=== PATIENT | female | born 1960 ===

== ENCOUNTER 2017-12-06 06:52 | Emergency (ER) | payer SELFPAY ==
[2017-12-06 07:31] VITALS: RESP 18; O2SAT 100
--- NOTE | 2017-12-06 08:02 | C.PDOC ---
History Of Present Illness 57 y/o female presents to the ER complaining of pain to the right hip. 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 Patient reports that the pain is worse with movement. Patient denies having headache, fever, chills, nausea, and vomiting. Time Seen by Provider: 12/06/17 07:46 Chief Complaint (Nursing): Lower Extremity Problem/Injury History Per: Patient History/Exam Limitations: no limitations Onset/Duration Of Symptoms: Days Current Symptoms Are (Timing): Still Present Severity: Moderate Past Medical History Reviewed: Historical Data, Nursing Documentation, Vital Signs Vital Signs: Last Vital Signs Temp 98.7 F 12/06/17 09:03 Pulse 68 12/06/17 09:03 Resp 18 12/06/17 09:03 BP 129/84 12/06/17 09:03 Pulse Ox 100 12/06/17 09:03 - Medical History PMH: No Chronic Diseases Other Surgeries: Hx of surgeries Family History: States: No Known Family Hx - Social History Hx Alcohol Use: Yes Hx Substance Use: No - Immunization History Hx Tetanus Toxoid Vaccination: No Hx Influenza Vaccination: No Hx Pneumococcal Vaccination: No Review Of Systems Except As Marked, All Systems Reviewed And Found Negative. Constitutional: Negative for: Fever, Chills Gastrointestinal: Negative for: Nausea, Vomiting Musculoskeletal: Positive for: Other (right hip pain) Neurological: Negative for: Headache Physical Exam - Physical Exam Appears: Non-toxic, No Acute Distress Skin: Normal Color, Warm, Dry Head: Atraumatic, Normacephalic Eye(s): bilateral: Normal Inspection Nose: Normal Oral Mucosa: Moist Neck: Supple Chest: Symmetrical Cardiovascular: Rhythm Regular Respiratory: Normal Breath Sounds, No Rales, No Rhonchi, No Wheezing Extremity: Normal ROM, No Tenderness, No Swelling Neurological/Psych: Oriented x3, Normal Speech Gait: Steady ED Course And Treatment - Laboratory Results Result Diagrams: 12/06/17 12:13 12/06/17 12:13 O2 Sat by Pulse Oximetry: 100 (RA) Pulse Ox Interpretation: Normal Medical Decision Making Medical Decision Making: Plan: --Motrin PO --Tylenol PO -- X-Ray- Hips -- POC Urine Test Discussed with surgery operations label clerk, request the patient f/u in his office today and for surgery tomorrow, Disposition Discussed With .: Ryder Degroot Doctor Will See Patient In The: Office Counseled Patient/Family Regarding: Studies Performed, Diagnosis, Need For Followup, Rx Given - Disposition Referrals: Ryder Degroot MD [Staff Provider] - [facility] [Outside] Disposition: HOME/ ROUTINE Disposition Time: 13:30 Condition: STABLE Additional Instructions: Siga en la clinica para obtener las medicinas. Siga con el doctor Mikayla weinberg en bazan oficina. Prescriptions: Dolutegravir Sodium [Tivicay] 1 tab PO DAILY #3 tab Emtricitabine/Tenofovir Diso [Truvada 200 MG-300 MG] 1 tab PO DAILY #3 tab Instructions: Foreign Body in Skin Forms: Work Excuse, Gen Discharge Inst [facility], [employer] (Vincentian) - POA Present On Arrival: Blood Incompatibility - Clinical Impression Clinical Impression: Needle stick injury - Scribe Statement The provider has reviewed the documentation as recorded by the Chemoibdanial Alvarez Provider Attestation: All medical record entries made by the Scribe were at my direction and personally dictated by me. I have reviewed the chart and agree that the record accurately reflects my personal performance of the history, physical exam, medical decision making, and the department course for this patient. I have also personally directed, reviewed, and agree with the discharge instructions and disposition.
--- NOTE | 2017-12-06 11:37 | CT ---
PROCEDURE: CT of the Right Hip. HISTORY: FB in hip COMPARISON: Correlation made to prior pelvis section of the abdomen and pelvis CT with contrast examination 05/15/2015.. TECHNIQUE: Contiguous axial images of the right hip were obtained. Coronal and sagittal reformats were generated. Contrast Dose: None Radiation dose:Total exam DLP = 647.87 mGy-cm. This CT exam was performed using one or more of the following dose reduction techniques: Automated exposure control, adjustment of the mA and/or kV according to patient size, and/or use of iterative reconstruction technique. FINDINGS: BONES: No acute fracture or destructive bony lesion identified at the right hip with visualized right pubic bones intact as well as the right iliac bone and sacrum as imaged. Pubic symphysis appears intact swells the bilateral ischium in the visualized distal portion of the left superior pubic ramus.Femoral head maintains normal contour as well as the acetabulum. The greater and lesser trochanters are intact. RIGHT HIP JOINT: Unremarkable. No dislocation. No degenerative changes. SOFT TISSUES: There is a 2.8 cm curvilinear radiodensity superolateral to the greater trochanter within inferior segment of the right gluteus medius muscle. No emphysema soft tissue changes are related. No moderate or prominent fluid collection is seen does suggest an abscess. Lack venous contrast limits evaluation here. Local soft tissues appear generally unremarkable as imaged. Urinary bladder and adnexal compartments are unremarkable as well as the appendix and limited capture of inferior small large-bowel components. IMPRESSION: 1. An interval 2.8 cm curvilinear radiodensity is seen within the gluteus medius muscle immediately superolateral to greater trochanter of the proximal right femur. No emphysematous changes are seen or definite soft tissue reaction. Lack of intravenous limits evaluation of the muscle. The finding was not seen in prior abdomen and pelvis CT examination dated 05/15/2015. 2. No fracture, dislocation or subluxation. No destructive bony lesion identified.
[2017-12-06] MEDS ORDERED: Emtricitabine-Tenofovir 200 mg-300 mg Tab PO STA (11:41)
[2017-12-06] MEDS ORDERED: Tetanus/Diphtheria Toxoids 0.5 ml Syringe IM ONE ×2 (11:41→11:57)
[2017-12-06 12:18] LABS: BASO % 0.8 % (0.0-2.0); EOS # 0.1 K/uL (0.0-0.7); HEMOGLOBIN 12.9 g/dL (11.0-16.0); LYMPH # 1.3 K/uL (1.0-4.3); LYMPH % 20.8 % (20.0-40.0); MEAN CELL VOLUME 81.3 fL (81.0-99.0); MEAN CORPUSCULAR HEMOGLOBIN 27.2 pg (27.0-31.0); MEAN CORPUSCULAR HGB CONC 33.4 g/dL (33.0-37.0); MEAN PLATELET VOLUME 7.7 fL (7.2-11.7); MONO # 0.3 K/uL (0.0-0.8); MONO % 4.6 % (0.0-10.0); NEUT # 4.5 K/uL (1.8-7.0); NEUT % 71.8 % (50.0-75.0); RBC 4.75 Mil/uL (3.80-5.20); RED CELL DISTRIBUTION WIDTH 14.5 % (11.5-14.5); WHITE BLOOD COUNT 6.2 K/uL (4.8-10.8)
[2017-12-06 12:28] LABS: URINE BILIRUBIN NEGATIVE (NEGATIVE); URINE BLOOD NEGATIVE (NEGATIVE); URINE CLARITY Clear (Clear); URINE COLOR Straw (YELLOW); URINE GLUCOSE (UA) NORMAL (Normal); URINE LEUKOCYTE ESTERASE NEG Leu/uL (Negative); URINE PROTEIN NEGATIVE (NEGATIVE); URINE UROBILINOGEN NORMAL mg/dL (0.2-1.0)
[2017-12-06 12:44] LABS: ALT/SGPT 56 U/L (9-52); AST/SGOT 36 U/L (14-36); BLOOD UREA NITROGEN 16 mg/dL (7-17); CALCIUM 9.5 mg/dl (8.6-10.4); GFR AFRICAN-AMERICAN > 60; GFR NON-AFRICAN AMERICAN > 60
[2017-12-06 13:00] LABS: ALBUMIN 4.4 g/dL (3.5-5.0)
[2017-12-06 13:06] LABS: ALB/GLOB RATIO 1.2 (1.0-2.1)
[2017-12-06 13:12] LABS: HEPATITIS B SURFACE AG Negative (NEGATIVE)
[2017-12-06 13:18] LABS: HEPATITIS A IGM NEGATIVE (NEGATIVE); HEPATITIS B CORE AB NEGATIVE (NEGATIVE)
[2017-12-06 13:30] LABS: HEPATITIS C ANTIBODY NEGATIVE (NEGATIVE)
[2017-12-06 13:50] VITALS: BP 142/89; PULSE 74; TEMP 97.7
--- NOTE | 2017-12-06 14:41 | RAD ---
PROCEDURE: Pelvis right hip HISTORY: states fb to right hip COMPARISON: 12/06/2017 CT pelvis and right hip TECHNIQUE: Standard protocol for this study/examination. FINDINGS: Confirmation of foreign body likely a needle fragment adjacent to the greater trochanter. This measures approximately 2 cm. IMPRESSION: Foreign body likely needle fragment. Otherwise unremarkable study
[2017-12-06] MEDS ORDERED: Emtricitabine-Tenofovir 200 mg-300 mg Tab PO NR (14:45)
[2017-12-07] MEDS ORDERED: Emtricitabine-Tenofovir 200 mg-300 mg Tab PO SCH (10:00)
== END 2017-12-06 14:45 | disposition home or self-care (01) ==
LOC: C.ER 06:52
DX: S79.911A Unspecified injury of right hip, initial encounter (principal); W46.0XXA Contact with hypodermic needle, initial encounter; Y92.531 Health care provider office as the place of occurrence of the external cause; Y99.8 Other external cause status; Z23 Encounter for immunization

== ENCOUNTER 2017-12-07 08:53 | Inpatient (IN) | payer OTHER ==
--- NOTE | 2017-12-07 10:55 | C.PDOC ---
History Of Present Illness 57-year-old female, presents to the emergency department for admission. Patient was seen in ED yesterday for a needle stuck in her buttocks. Patient was discharged for outpatient f/u in office with Dr Degroot, and surgery today. Patient denies any new symptoms. Denies nausea/vomiting, fever or any other associated symptoms. No other complaints at this time. Time Seen by Provider: 12/07/17 09:16 Chief Complaint (Nursing): Lower Extremity Problem/Injury History Per: Patient History/Exam Limitations: no limitations Past Medical History Reviewed: Historical Data, Nursing Documentation, Vital Signs Vital Signs: Last Vital Signs Temp 97.7 F 12/07/17 13:30 Pulse 69 12/07/17 13:30 Resp 20 12/07/17 13:30 BP 115/81 12/07/17 13:30 Pulse Ox 100 12/07/17 13:30 Family History: States: No Known Family Hx - Social History Hx Alcohol Use: Yes Hx Substance Use: No - Immunization History Hx Tetanus Toxoid Vaccination: Yes Hx Influenza Vaccination: No Hx Pneumococcal Vaccination: No Review Of Systems Constitutional: Negative for: Fever, Chills Respiratory: Negative for: Shortness of Breath Gastrointestinal: Negative for: Vomiting Physical Exam - Physical Exam Appears: Non-toxic, No Acute Distress Skin: Normal Color, Warm, Dry, No Rash Head: Normacephalic Eye(s): bilateral: PERRL Nose: Normal Oral Mucosa: Moist Lips: Normal Appearing Neck: Normal ROM Chest: Symmetrical Extremity: Normal ROM, No Deformity, No Swelling Neurological/Psych: Oriented x3, Normal Speech ED Course And Treatment O2 Sat by Pulse Oximetry: 99 Disposition Discussed With .: Ryder Degroot Doctor Will See Patient In The: Hospital - Disposition Disposition: HOSPITALIZED Disposition Time: 12:00 Condition: STABLE - POA Present On Arrival: None - Clinical Impression Clinical Impression: Needle stick injury, Foreign body (FB) in soft tissue - Scribe Statement The provider has reviewed the documentation as recorded by the Scribe (Darron Odom) All medical record entries made by the Scribe were at my direction and personally dictated by me. I have reviewed the chart and agree that the record accurately reflects my personal performance of the history, physical exam, medical decision making, and the department course for this patient. I have also personally directed, reviewed, and agree with the discharge instructions and disposition. Decision To Admit - Pt Status Changed To: Hospital Disposition Of: SDS- Endo,OR,Cath,IR - . Bed Request Type: Same Day Surgery Admitting Physician: Ryder Degroot Patient Diagnosis: Needle stick injury, Foreign body (FB) in soft tissue
[2017-12-07] MEDS ORDERED: Sodium Chloride 0.9% 1,000 ML ONE (11:04)
[2017-12-07] MEDS: Sodium Chloride 0.9% 1,000 ML IV SCH ×2 (11:11→21:40)
--- NOTE | 2017-12-07 12:26 | RAD ---
PROCEDURE: Right Hip Radiographs. HISTORY: Foreign body right buttock COMPARISON: CT scan of the right hip dated 12/06/2017. FINDINGS: BONES: No acute fracture. JOINTS: Normal. SOFT TISSUES: Curvilinear radiodensity adjacent to right greater trochanter, unchanged. OTHER FINDINGS: None. IMPRESSION: Stable appearance of curvilinear radiodensity adjacent to right greater trochanteric.
[2017-12-07] MEDS ORDERED: Hydrocodone/Acetaminophen 5 mg /300 mg Tab PO PRN (16:10)
[2017-12-07] MEDS ORDERED: Sodium Chloride 0.9% 1,000 ML IV ONE ×2 (16:15→17:00)
[2017-12-07] MEDS ORDERED: Pneumococcal 23-Valent Vaccine IM ONE (20:41)
--- NOTE | 2017-12-07 22:37 | CP.PCM.HP ---
History of Present Illness - History of Present Illness History of Present Illness: CC: foreign body in rectum History Of Present Illness 57-year-old female with no significant PMH, presents to the emergency department for admission. Patient was seen in ED yesterday for a needle stuck in her buttocks. Patient was discharged for outpatient f/u in office with Dr Degroot, and surgery today. Patient denies any new symptoms. Denies nausea/ vomiting, fever or any other associated symptoms. No other complaints at this time. Present on Admission - Present on Admission Any Indicators Present on Admission: Yes Review of Systems - Review of Systems Systems not reviewed;Unavailable: Acuity of Condition - Constitutional Constitutional: Fatigue, Lethargy, Malaise - EENT Eyes: absent: As Per HPI, Blind Spots, Blurred Vision, Change in Vision, Decreased Night Vision, Diplopia, Discharge, Dry Eye, Exophthalmos, Floaters, Irritation, Itchy Eyes, Loss of Peripheral Vision, Pain, Photophobia, Requires Corrective Lenses, Sees Flashes, Spots in Vision, Tunnel Vision, Other Visual Disturbances, Loss of Vision, Other Ears: absent: As Per HPI, Decreased Hearing, Ear Discharge, Ear Pain, Tinnitus, Abnormal Hearing, Disequilibrium, Dizziness, Other Nose/Mouth/Throat: absent: As Per HPI, Epistaxis, Nasal Congestion, Nasal Discharge, Nasal Obstruction, Nasal Trauma, Nose Pain, Post Nasal Drip, Sinus Pain, Sinus Pressure, Bleeding Gums, Change in Voice, Dental Pain, Dry Mouth, Dysphagia, Halitosis, Hoarsness, Lip Swelling, Mouth Lesions, Mouth Pain, Odynophagia, Sore Throat, Throat Swelling, Tongue Swelling, Facial Pain, Neck Pain, Neck Mass, Other - Breasts Breasts: absent: As Per HPI, Change in Shape, Mass, Pain, Nipple Discharge, Nipple Inversion, Skin Changes, Swelling, Other - Cardiovascular Cardiovascular: absent: As Per HPI, Acrocyanosis, Chest Pain, Chest Pain at Rest , Chest Pain with Activity, Claudication, Diaphoresis, Dyspnea, Dyspnea on Exertion, Edema, Irregular Heart Rhythm, Pain Radiating to Arm/Neck/Jaw, Leg Edema, Leg Ulcers, Lightheadedness, Orthopnea, Palpitations, Paroxysmal Nocturnal Dyspnea, Pedal Edema, Radiating Pain, Rapid Heart Rate, Slow Heart Rate, Syncope, Other - Respiratory Respiratory: absent: As Per HPI, Cough, Dyspnea, Hemoptysis, Dyspnea on Exertion , Wheezing, Snoring, Stridor, Pain on Inspiration, Chest Congestion, Excessive Mucous Production, Change in Mucous Color, Pain with Coughing, Other - Gastrointestinal Gastrointestinal: absent: As Per HPI, Abdominal Pain, Belching, Bloating, Change in Bowel Habits, Change in Stool Character, Coffee Ground Emesis, Constipation, Cramping, Diarrhea, Dyspepsia, Dysphagia, Early Satiety, Excessive Flatus, Fecal Incontinence, Heartburn, Hematemesis, Hematochezia, Loose Stools, Melena, Nausea, Odynophagia, Temesmus, Vomiting, Other - Genitourinary Genitourinary: absent: As Per HPI, Change in Urinary Stream, Difficulty Urinating, Dysuria, Flank Pain, Hematuria, Pyuria, Nocturia, Urinary Incontinence, Urinary Frequency, Urinary Hesitance, Urinary Urgency, Voiding Freq/Small Amts, Freq UTI, Hx Renal/Bladder Calculi, Hx /Renal Surgery, Bladder Distension, Other - Reproductive: Female Reproductive:Female: absent: As Per HPI, Amenorrhea, Amenorrhea/ Control, Currently Menstual, Cycle <21 Days, Cycle >35 Days, Cycle Variable, Menses 1-7 Days, Menses >/= 8 Days, Menses Variable, Cycle > 4 Weeks Between, No Menses for 6 Months, Heavy Menses, Light Menses, Normal Menses, Spotting Between Cycles , S/P Hysterectomy, Menopausal, Post Menopausal, Premenarche, Abnormal Vaginal Bleeding, Dysmenorrhea, Dyspareunia, Genital Lesions, Genital Pruritis, Pelvic Pain, Prolapse Symptoms, Sexual Dysfunction, Vaginal Discharge, Vaginal Dryness , Vaginal Odor, Vaginal Pruritis, Other - Integumentary Integumentary: Erythema, Non-Healing Lesions, Other (foreing body in rectum) Past Patient History - Past Medical History & Family History Past Medical History?: Yes - Past Social History Smoking Status: Never Smoked - MUSCULOSKELETAL/RHEUMATOLOGICAL Hx Falls: No - PSYCHIATRIC Hx Substance Use: No - SURGICAL HISTORY Hx Surgeries: Yes Other/Comment: rt ovary removed - ANESTHESIA Hx Anesthesia: Yes Hx Anesthesia Reactions: No Meds Allergies/Adverse Reactions: Allergies Allergy/AdvReac Type Severity Reaction Status Date / Time No Known Allergies Allergy Verified 12/06/17 07:31 Physical Exam - Constitutional Appears: No Acute Distress - Head Exam Head Exam: ATRAUMATIC, NORMAL INSPECTION, NORMOCEPHALIC - Eye Exam Eye Exam: EOMI, Normal appearance, PERRL Pupil Exam: NORMAL ACCOMODATION, PERRL - Respiratory Exam Respiratory Exam: Clear to Auscultation Bilateral, NORMAL BREATHING PATTERN - Cardiovascular Exam Cardiovascular Exam: REGULAR RHYTHM - GI/Abdominal Exam GI & Abdominal Exam: Normal Bowel Sounds, Soft. absent: Tenderness - Rectal Exam Additional comments: erythema, tenderness Results - Vital Signs Recent Vital Signs: Last Vital Signs Temp 97.8 F 12/07/17 21:17 Pulse 65 12/07/17 21:17 Resp 20 12/07/17 21:17 BP 137/87 12/07/17 21:17 Pulse Ox 97 12/07/17 21:17 - Labs Result Diagrams: 12/10/17 10:12 12/10/17 08:57 Assessment & Plan (1) Foreign body (FB) in soft tissue Assessment and Plan: for surgical consult Status: Acute (2) Needle stick injury Status: Acute
[2017-12-08] MEDS: Sodium Chloride 0.9% 1,000 ML IV SCH ×3 (05:21→16:31)
[2017-12-08 07:05] LABS: BASO % 0.5 % (0.0-2.0); EOS # 0.1 K/uL (0.0-0.7); EOS % 2.3 % (0.0-4.0); HEMOGLOBIN 12.2 g/dL (11.0-16.0); LYMPH # 1.3 K/uL (1.0-4.3); LYMPH % 22.6 % (20.0-40.0); MEAN CELL VOLUME 81.8 fL (81.0-99.0); MEAN CORPUSCULAR HEMOGLOBIN 26.8 pg (27.0-31.0); MEAN CORPUSCULAR HGB CONC 32.8 g/dL (33.0-37.0); MONO # 0.4 K/uL (0.0-0.8); MONO % 6.8 % (0.0-10.0); NEUT % 67.8 % (50.0-75.0); RBC 4.55 Mil/uL (3.80-5.20)
[2017-12-08 07:28] LABS: BLOOD UREA NITROGEN 12 mg/dL (7-17); CALCIUM 8.7 mg/dl (8.6-10.4); GFR AFRICAN-AMERICAN > 60; GFR NON-AFRICAN AMERICAN > 60
[2017-12-08] MEDS ORDERED: Propofol 10 mg/ml Inj (20 ML) ONE (12:59)
[2017-12-08] MEDS ORDERED: Midazolam 2 MG/2 ML VIAL ONE (12:59)
[2017-12-08] MEDS ORDERED: Bupivacaine HCl 0.25% PF (30 ml) Inj ONE (13:19)
[2017-12-08] MEDS ORDERED: ceFAZolin 1 gm in NS 1 GM/100 ML BAG IVPB ONE (13:19)
[2017-12-08] MEDS ORDERED: ePHEDrine 50 mg/ml Inj ONE (14:17)
[2017-12-08] MEDS ORDERED: Lidocaine Hydrochloride 5 ML INJ ONE (14:17)
[2017-12-08] MEDS ORDERED: HYDROmorphone 0.5 mg/0.5 ml ISec ONE ×2 (14:58→15:14)
[2017-12-08] MEDS ORDERED: HYDROmorphone 0.5 mg/0.5 ml ISec IVP PRN (15:05)
--- NOTE | 2017-12-08 16:30 | RAD ---
PROCEDURE: Intraoperative Fluoroscopy. HISTORY: FOREIGN BODY RT THIGH FINDINGS: Fluoroscopic assistance was provided. Please refer to the operative report from CHANDNI Mccall.
[2017-12-08] MEDS: Oxycodone/Acetaminophen 5/325 mg Tab PO PRN ×2 (17:47→21:59)
--- NOTE | 2017-12-08 23:25 | CP.PCM.PN ---
Subjective - Date & Time of Evaluation Date of Evaluation: 12/08/17 Time of Evaluation: 19:00 - Subjective Subjective: Pt seen and examined, pt has some nausea and c/o abdominal pain, pt has been seen by Objective - Vital Signs/Intake and Output Vital Signs (last 24 hours): Temp Pulse Resp BP Pulse Ox 97.5 F L 60 20 114/73 96 12/08/17 16:25 12/08/17 16:25 12/08/17 16:25 12/08/17 16:25 12/08/17 16:25 Intake and Output: 12/08/17 12/09/17 18:59 06:59 Intake Total 1700 840 Balance 1700 840 - Medications Medications: Current Medications Sodium Chloride (Sodium Chloride 0.9%) 1,000 mls @ 100 mls/hr IV .Q10H [facility] Last Admin: 12/08/17 16:31 Dose: Not Given Cefazolin Sodium 1,000 mg/ (Sodium Chloride) 100 mls @ 200 mls/hr IVPB Q8H DINESH PRN Reason: Protocol Last Admin: 12/08/17 17:46 Dose: Not Given Lactated Ringer's (Lactated Ringer's) 1,000 mls @ 100 mls/hr IV .Q10H DINESH Morphine Sulfate (Morphine) 2 mg IVP Q4 PRN PRN Reason: Pain, moderate (4-7) Ondansetron HCl (Zofran Inj) 4 mg IVP DAILY@ONCE PRN PRN Reason: Nausea/Vomiting Last Admin: 12/08/17 21:59 Dose: 4 mg Oxycodone/Acetaminophen (Percocet 5/325 Mg Tab) 2 tab PO Q4H PRN PRN Reason: pain Stop: 12/11/17 14:51 Last Admin: 12/08/17 21:59 Dose: 2 tab - Labs Labs: 12/08/17 06:56 12/08/17 06:56 - Constitutional Appears: No Acute Distress - Head Exam Head Exam: ATRAUMATIC, NORMAL INSPECTION, NORMOCEPHALIC - Eye Exam Eye Exam: EOMI, Normal appearance, PERRL Pupil Exam: NORMAL ACCOMODATION, PERRL - ENT Exam ENT Exam: Mucous Membranes Moist, Normal Exam - Respiratory Exam Respiratory Exam: Clear to Ausculation Bilateral, NORMAL BREATHING PATTERN - Cardiovascular Exam Cardiovascular Exam: REGULAR RHYTHM, +S1, +S2. absent: Murmur - GI/Abdominal Exam GI & Abdominal Exam: Soft, Tenderness, Hyperactive Bowel Sounds - Rectal Exam Additional comments: erythema Assessment and Plan (1) Foreign body (FB) in soft tissue Status: Acute (2) Needle stick injury Status: Acute (3) Diarrhea Status: Acute (4) Left sided abdominal pain Status: Acute
[2017-12-09] MEDS: Sodium Chloride 0.9% 1,000 ML IV SCH ×5 (00:29→16:51)
[2017-12-09] MEDS: Morphine 4 MG/ML VIAL IVP PRN ×2 (01:02→14:15)
[2017-12-09] MEDS: Lactated Ringer's 1,000 ML IV SCH ×2 (01:06→11:27)
--- NOTE | 2017-12-09 01:46 | OP ---
PROCEDURE DATE: 12/08/2017. PREOPERATIVE DIAGNOSIS: Foreign body, left hip. POSTOPERATIVE DIAGNOSIS: Syringe needle foreign body of the left hip. PROCEDURE PERFORMED: Exploration of left hip on the C-arm with removal of deep foreign body. SURGEON: Ryder Degroot MD. TYPE OF ANESTHESIA: General. ESTIMATED BLOOD LOSS: 50 mL. POSTOP CONDITION: Stable. 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 She developed pain in her hip, and it has been going worse over time. She recently had an x-ray which revealed a needle foreign body deep in her hip near her greater trochanter. She now will undergo a exploratory surgery to remove the needle. GROSS FINDINGS: The patient had a what appeared to be a syringe needle but only the metal part deep in her hip just above the greater trochanter beneath the gluteus medius muscle. Finding it was difficult and required multiple uses of the C-arm. PROCEDURE: The patient was taken to the operating room. General anesthesia was administered. An transverse incision was made on the left hip over the greater trochanter and it was carried down to the subcutaneous tissue. Both the gluteus jem and immediate muscles were divided as were the smaller muscle groups deep in the hip joint. The C-arm was used from the beginning of the case to the end as we slowly worked our way down deep and used it as a guide to find the needle. Once we were down to the area where the needle was, using the C-arm, a tonsil clamp was used to grasp the needle and then a cut down was performed down to the tonsil clamp tip. Once this was done, the needle was exposed and removed. A large wound was left with multiple muscle groups divided. They were all individually repaired with heavy Vicryl and advancement flap closure was performed due to large amount of space by mobilizing using multiple layers of Monocryl, subcuticular Monocryl and glue. A blood vessel was repaired during the procedure in the hip space. The patient tolerated the procedure well and returned to recovery room in stable condition. Ryder Degroot MD
[2017-12-09] MEDS: Oxycodone/Acetaminophen 5/325 mg Tab PO PRN ×2 (04:20→17:26)
[2017-12-09] MEDS: Emtricitabine-Tenofovir 200 mg-300 mg Tab PO SCH (10:23)
--- NOTE | 2017-12-09 11:56 | RAD ---
HISTORY: pain COMPARISON: No prior. FINDINGS: BOWEL: No evidence bowel obstruction. Cannot rule out free air. No upright film submitted. Mild retained feces. No masses or abnormal calcifications. BONES: Normal. OTHER FINDINGS: None. IMPRESSION: No evidence of bowel obstruction.
--- NOTE | 2017-12-09 23:04 | CP.PCM.PN ---
Subjective - Date & Time of Evaluation Date of Evaluation: 12/09/17 Time of Evaluation: 18:40 - Subjective Subjective: Pt seen and examined at bedside, decreased abdominal pain, surgery following up , is feeling well Objective - Vital Signs/Intake and Output Vital Signs (last 24 hours): Temp Pulse Resp BP Pulse Ox 98.8 F 78 20 136/83 96 12/09/17 15:00 12/09/17 15:00 12/09/17 15:00 12/09/17 15:00 12/09/17 15:00 Intake and Output: 12/09/17 12/10/17 18:59 06:59 Intake Total 1300 960 Output Total 700 Balance 1300 260 - Medications Medications: Current Medications Dolutegravir Sodium (Tivicay) 50 mg PO DAILY DINESH PRN Reason: Protocol Last Admin: 12/09/17 10:23 Dose: 50 mg Emtricitabine/Tenofovir (Truvada 200 Mg-300 Mg) 1 tab PO DAILY DINESH PRN Reason: Protocol Last Admin: 12/09/17 10:23 Dose: 1 tab Cefazolin Sodium 1,000 mg/ (Sodium Chloride) 100 mls @ 200 mls/hr IVPB Q8H DINESH PRN Reason: Protocol Last Admin: 12/09/17 16:42 Dose: 200 mls/hr Sodium Chloride (Sodium Chloride 0.9%) 1,000 mls @ 70 mls/hr IV .[id number] [facility] Last Admin: 12/09/17 16:51 Dose: 70 mls/hr Morphine Sulfate (Morphine) 2 mg IVP Q4 PRN PRN Reason: Pain, moderate (4-7) Last Admin: 12/09/17 14:15 Dose: 2 mg Ondansetron HCl (Zofran Inj) 4 mg IVP DAILY@ONCE PRN PRN Reason: Nausea/Vomiting Last Admin: 12/09/17 08:38 Dose: 4 mg Oxycodone/Acetaminophen (Percocet 5/325 Mg Tab) 2 tab PO Q4H PRN PRN Reason: pain Stop: 12/11/17 14:51 Last Admin: 12/09/17 17:26 Dose: 2 tab - Labs Labs: 12/08/17 06:56 12/08/17 06:56 - Constitutional Appears: No Acute Distress - Head Exam Head Exam: ATRAUMATIC, NORMAL INSPECTION, NORMOCEPHALIC - Eye Exam Eye Exam: EOMI, Normal appearance, PERRL Pupil Exam: NORMAL ACCOMODATION, PERRL - Respiratory Exam Respiratory Exam: Clear to Ausculation Bilateral, NORMAL BREATHING PATTERN - Cardiovascular Exam Cardiovascular Exam: REGULAR RHYTHM, +S1, +S2. absent: Murmur - GI/Abdominal Exam GI & Abdominal Exam: Soft, Normal Bowel Sounds. absent: Tenderness - Rectal Exam Rectal Exam: Deferred Assessment and Plan (1) Foreign body (FB) in soft tissue Status: Acute (2) Needle stick injury Status: Acute (3) Fatty liver Status: Acute (4) Left sided abdominal pain Status: Acute
[2017-12-10] MEDS: Oxycodone/Acetaminophen 5/325 mg Tab PO PRN (00:21)
[2017-12-10] MEDS: Sodium Chloride 0.9% 1,000 ML IV SCH ×2 (06:08→21:29)
[2017-12-10] MEDS: Morphine 4 MG/ML VIAL IVP PRN (07:29)
[2017-12-10] MEDS: Emtricitabine-Tenofovir 200 mg-300 mg Tab PO SCH (09:11)
[2017-12-10 09:33] LABS: BLOOD UREA NITROGEN 8 mg/dL (7-17); CALCIUM 8.4 mg/dl (8.6-10.4); GFR AFRICAN-AMERICAN > 60; GFR NON-AFRICAN AMERICAN > 60
[2017-12-10 10:17] LABS: BASO % 0.4 % (0.0-2.0); EOS # 0.2 K/uL (0.0-0.7); LYMPH # 1.1 K/uL (1.0-4.3); LYMPH % 16.9 % (20.0-40.0); MEAN CELL VOLUME 81.7 fL (81.0-99.0); MEAN CORPUSCULAR HEMOGLOBIN 26.9 pg (27.0-31.0); MEAN PLATELET VOLUME 8.3 fL (7.2-11.7); MONO # 0.6 K/uL (0.0-0.8); MONO % 9.5 % (0.0-10.0); NEUT # 4.5 K/uL (1.8-7.0); NEUT % 70.2 % (50.0-75.0); NRBC % 0.1 % (0.0-2.0); RBC 4.09 Mil/uL (3.80-5.20); RED CELL DISTRIBUTION WIDTH 14.9 % (11.5-14.5); WHITE BLOOD COUNT 6.4 K/uL (4.8-10.8)
--- NOTE | 2017-12-10 17:41 | CP.PCM.PN ---
Subjective - Date & Time of Evaluation Date of Evaluation: 12/10/17 Time of Evaluation: 19:00 - Subjective Subjective: pt is doing well, decreased nause vomitting, abdominal pain Objective - Vital Signs/Intake and Output Vital Signs (last 24 hours): Temp Pulse Resp BP Pulse Ox 100.7 F H 77 20 128/79 96 12/10/17 16:00 12/10/17 16:00 12/10/17 16:00 12/10/17 16:00 12/10/17 16:00 Intake and Output: 12/10/17 12/10/17 06:59 18:59 Intake Total 1760 960 Output Total 700 Balance 1060 960 - Medications Medications: Current Medications Dolutegravir Sodium (Tivicay) 50 mg PO DAILY DINESH PRN Reason: Protocol Last Admin: 12/10/17 09:11 Dose: 50 mg Emtricitabine/Tenofovir (Truvada 200 Mg-300 Mg) 1 tab PO DAILY DINESH PRN Reason: Protocol Last Admin: 12/10/17 09:11 Dose: 1 tab Sodium Chloride (Sodium Chloride 0.9%) 1,000 mls @ 70 mls/hr IV .[id number] DINESH Last Admin: 12/10/17 06:08 Dose: 70 mls/hr Morphine Sulfate (Morphine) 2 mg IVP Q4 PRN PRN Reason: Pain, moderate (4-7) Last Admin: 12/10/17 07:29 Dose: 2 mg Ondansetron HCl (Zofran Inj) 4 mg IVP DAILY@ONCE PRN PRN Reason: Nausea/Vomiting Last Admin: 12/10/17 17:30 Dose: 4 mg Oxycodone/Acetaminophen (Percocet 5/325 Mg Tab) 2 tab PO Q4H PRN PRN Reason: pain Stop: 12/11/17 14:51 Last Admin: 12/10/17 00:21 Dose: 2 tab - Labs Labs: 12/10/17 10:12 12/10/17 08:57 - Constitutional Appears: No Acute Distress - Head Exam Head Exam: ATRAUMATIC, NORMAL INSPECTION, NORMOCEPHALIC - Eye Exam Eye Exam: EOMI, Normal appearance, PERRL Pupil Exam: NORMAL ACCOMODATION, PERRL - Respiratory Exam Respiratory Exam: Clear to Ausculation Bilateral, NORMAL BREATHING PATTERN - Cardiovascular Exam Cardiovascular Exam: REGULAR RHYTHM, +S1, +S2. absent: Murmur - GI/Abdominal Exam GI & Abdominal Exam: Soft, Normal Bowel Sounds. absent: Tenderness Assessment and Plan (1) Foreign body (FB) in soft tissue Status: Acute (2) Needle stick injury Status: Acute (3) Fatty liver Status: Acute (4) Left sided abdominal pain Status: Acute
[2017-12-11] MEDS: Oxycodone/Acetaminophen 5/325 mg Tab PO PRN ×2 (02:07→14:14)
[2017-12-11] MEDS: Emtricitabine-Tenofovir 200 mg-300 mg Tab PO SCH (09:03)
[2017-12-11] MEDS: Sodium Chloride 0.9% 1,000 ML IV SCH ×2 (13:37→14:00)
[2017-12-11 20:04] VITALS: RESP 20
--- NOTE | 2017-12-11 23:15 | CP.PCM.PN ---
Subjective - Date & Time of Evaluation Date of Evaluation: 12/11/17 Time of Evaluation: 17:30 - Subjective Subjective: Pt is seen and examined today during rounds Objective - Vital Signs/Intake and Output Vital Signs (last 24 hours): Temp Pulse Resp BP Pulse Ox 98.4 F 75 20 131/77 95 12/11/17 20:04 12/11/17 20:04 12/11/17 20:04 12/11/17 20:04 12/11/17 20:04 Intake and Output: 12/11/17 12/12/17 18:59 06:59 Intake Total 1060 300 Output Total 500 Balance 1060 -200 - Medications Medications: Current Medications Dolutegravir Sodium (Tivicay) 50 mg PO DAILY DINESH PRN Reason: Protocol Last Admin: 12/11/17 09:02 Dose: 50 mg Emtricitabine/Tenofovir (Truvada 200 Mg-300 Mg) 1 tab PO DAILY DINESH PRN Reason: Protocol Last Admin: 12/11/17 09:03 Dose: 1 tab Morphine Sulfate (Morphine) 2 mg IVP Q4 PRN PRN Reason: Pain, moderate (4-7) Last Admin: 12/10/17 07:29 Dose: 2 mg Ondansetron HCl (Zofran Inj) 4 mg IVP DAILY@ONCE PRN PRN Reason: Nausea/Vomiting Last Admin: 12/10/17 17:30 Dose: 4 mg - Labs Labs: 12/10/17 10:12 12/10/17 08:57 Assessment and Plan (1) Foreign body (FB) in soft tissue Status: Acute (2) Needle stick injury Status: Acute (3) Fatty liver Status: Acute (4) Left sided abdominal pain Status: Acute
[2017-12-12] MEDS ORDERED: Oxycodone/Acetaminophen 5/325 mg Tab PO ONE ×2 (00:07→09:00)
[2017-12-12 08:05] VITALS: BP 130/73; PULSE 66; TEMP 98.3; O2SAT 100
[2017-12-12] MEDS ORDERED: Oxycodone/Acetaminophen 5/325 mg Tab PO PRN (08:53)
[2017-12-12] MEDS: Emtricitabine-Tenofovir 200 mg-300 mg Tab PO SCH (09:46)
--- NOTE | 2017-12-12 17:02 | CP.PCM.PN ---
Subjective - Date & Time of Evaluation Date of Evaluation: 12/12/17 Time of Evaluation: 11:00 - Subjective Subjective: alert, awake, no acute pain or distress. Objective - Vital Signs/Intake and Output Vital Signs (last 24 hours): Temp Pulse Resp BP Pulse Ox 98.3 F 66 20 130/73 100 12/12/17 08:03 12/12/17 08:03 12/12/17 08:03 12/12/17 08:03 12/12/17 08:03 Intake and Output: 12/12/17 12/12/17 06:59 18:59 Intake Total 540 350 Output Total 500 Balance 40 350 - Labs Labs: 12/10/17 10:12 12/10/17 08:57 Assessment and Plan - Assessment and Plan (Free Text) Assessment: Patient admitted with foreign body on the right buttocks, s/p removal of the metallic needle, seen and examined. Alert and orientedx3, tamar dry and clean on the right buttocks, nad.. Cleared by DR Dgeroot to discharge home on percocet prn for pain. Advised to follow up in 1 week to his office. Discussed with DR Romero.
--- NOTE | 2017-12-12 23:05 | CP.PCM.DIS ---
Provider - Provider Date of Admission: 12/07/17 16:10 Attending physician: Ryder Degroot MD Time Spent in preparation of Discharge (in minutes): 52 Diagnosis - Discharge Diagnosis (1) Foreign body (FB) in soft tissue Status: Acute (2) Needle stick injury Status: Acute (3) Fatty liver Status: Acute (4) Left sided abdominal pain Status: Acute Hospital Course - Lab Results Lab Results: Most Recent Lab Values WBC 6.4 K/uL (4.8-10.8) 12/10/17 10:12 RBC 4.09 Mil/uL (3.80-5.20) 12/10/17 10:12 Hgb 11.0 g/dL (11.0-16.0) 12/10/17 10:12 Hct 33.4 % (34.0-47.0) L 12/10/17 10:12 MCV 81.7 fL (81.0-99.0) 12/10/17 10:12 MCH 26.9 pg (27.0-31.0) L 12/10/17 10:12 MCHC 33.0 g/dL (33.0-37.0) 12/10/17 10:12 RDW 14.9 % (11.5-14.5) H 12/10/17 10:12 Plt Count 250 K/uL (130-400) 12/10/17 10:12 MPV 8.3 fL (7.2-11.7) 12/10/17 10:12 Neut % (Auto) 70.2 % (50.0-75.0) 12/10/17 10:12 Lymph % (Auto) 16.9 % (20.0-40.0) L 12/10/17 10:12 Baker % (Auto) 9.5 % (0.0-10.0) 12/10/17 10:12 Eos % (Auto) 3.0 % (0.0-4.0) 12/10/17 10:12 Baso % (Auto) 0.4 % (0.0-2.0) 12/10/17 10:12 Neut # (Auto) 4.5 K/uL (1.8-7.0) 12/10/17 10:12 Lymph # (Auto) 1.1 K/uL (1.0-4.3) 12/10/17 10:12 Baker # (Auto) 0.6 K/uL (0.0-0.8) 12/10/17 10:12 Eos # (Auto) 0.2 K/uL (0.0-0.7) 12/10/17 10:12 Baso # (Auto) 0.0 K/uL (0.0-0.2) 12/10/17 10:12 Sodium 141 mmol/L (132-148) 12/10/17 08:57 Potassium 3.8 mmol/L (3.6-5.2) 12/10/17 08:57 Chloride 102 mmol/L (98-107) 12/10/17 08:57 Carbon Dioxide 29 mmol/L (22-30) 12/10/17 08:57 Anion Gap 14 (10-20) 12/10/17 08:57 BUN 8 mg/dL (7-17) 12/10/17 08:57 Creatinine 0.7 mg/dL (0.7-1.2) 12/10/17 08:57 Est GFR ( Amer) > 60 12/10/17 08:57 Est GFR (Non-Af Amer) > 60 12/10/17 08:57 Random Glucose 82 mg/dL (65-105) 12/10/17 08:57 Calcium 8.4 mg/dl (8.6-10.4) L 12/10/17 08:57 - Hospital Course Hospital Course: Pt is for discharge today seen and examined Discharge Exam - Head Exam Head Exam: ATRAUMATIC, NORMAL INSPECTION, NORMOCEPHALIC Discharge Plan - Discharge Medications Prescriptions: oxyCODONE/Acetaminophen [Percocet 5/325 mg Tab] 1 ea PO Q6H PRN #20 tab PRN Reason: Pain, Severe (8-10) - Follow Up Plan Condition: STABLE Disposition: HOME/ ROUTINE Instructions: Oxycodone and Acetaminophen, Foreign Body in Skin (DC) Referrals: Ryder Degroot MD [Staff Provider] -
== END 2017-12-12 15:43 | disposition home or self-care (01) | DRG 227 ==
LOC: C.3T 08:53 → C.ER 08:53 → C.SDS 11:52 → C.9S 14:13 → C.3T 16:10
PROVIDERS: ADMIT Surgery; ATTEND Surgery
PROC: 06QY0ZZ Repair Lower Vein, Open Approach (ICD-10-PCS; 2017-12-08)
PROC: 0KXP0ZZ Transfer Left Hip Muscle, Open Approach (ICD-10-PCS; 2017-12-08)
PROC: 0KCP0ZZ Extirpation of Matter from Left Hip Muscle, Open Approach (ICD-10-PCS; principal; 2017-12-08 12:00)
DX: M79.5 Residual foreign body in soft tissue (principal); W46.0XXA Contact with hypodermic needle, initial encounter; K76.0 Fatty (change of) liver, not elsewhere classified; R10.9 Unspecified abdominal pain

== ENCOUNTER 2018-06-19 10:58 | Emergency (ER) | payer OTHER ==
[2018-06-19 11:13] VITALS: BMI 25.7
[2018-06-19 11:16] VITALS: BP 139/85; PULSE 59; RESP 18; TEMP 98.4; O2SAT 99
[2018-06-19] MEDS ORDERED: Lidocaine 5% Patch TD ONE (12:19)
--- NOTE | 2018-06-19 12:43 | C.PDOC ---
History Of Present Illness 57 y/o female with no significant PMHx, s/p fb removal from right hip surgically in November, c/o one month hx of lower back pain, right side more than an left. right side radiates down right leg. no hx injury or trauma. pt denies weakness, saddle anesthesia, bladder or bowel dysfunctions. Time Seen by Provider: 06/19/18 12:01 Chief Complaint (Nursing): Hip Pain History Per: Patient History/Exam Limitations: no limitations Onset/Duration Of Symptoms: Days Current Symptoms Are (Timing): Still Present Past Medical History Reviewed: Historical Data, Nursing Documentation, Vital Signs Vital Signs: Last Vital Signs Temp 98.4 F 06/19/18 11:14 Pulse 59 L 06/19/18 11:14 Resp 18 06/19/18 11:14 BP 139/85 06/19/18 11:14 Pulse Ox 99 06/19/18 11:14 - Medical History PMH: No Chronic Diseases - [facility] Procedures EXTIRPATION OF MATTER FROM LEFT HIP MUSCLE, OPEN APPROACH (12/07/17) REPAIR LOWER VEIN, OPEN APPROACH (12/07/17) TRANSFER LEFT HIP MUSCLE, OPEN APPROACH (12/07/17) Family History: States: No Known Family Hx - Social History Hx Alcohol Use: No Hx Substance Use: No - Immunization History Hx Tetanus Toxoid Vaccination: No Hx Influenza Vaccination: No Hx Pneumococcal Vaccination: No Review Of Systems Constitutional: Negative for: Fever Gastrointestinal: Negative for: Vomiting, Abdominal Pain, Diarrhea Genitourinary: Negative for: Dysuria, Incontinence, Hematuria Musculoskeletal: Positive for: Back Pain, Leg Pain Neurological: Negative for: Weakness, Numbness, Incoordination Physical Exam - Physical Exam Appears: Non-toxic, No Acute Distress Skin: Warm, No Rash, Other (large well healed scar on the right upper lateral thigh, non-tender, no erythema) Head: Normacephalic Eye(s): bilateral: PERRL Oral Mucosa: Moist Neck: Supple Chest: Symmetrical Cardiovascular: Rhythm Regular, No Murmur Respiratory: No Decreased Breath Sounds, No Wheezing Gastrointestinal/Abdominal: Bowel Sounds, Soft, No Tenderness Back: No Vertebral Tenderness, Other (Tenderness over the right sciatic notch) Extremity: Normal ROM (with full ROM of bilateral hips), No Calf Tenderness, Capillary Refill (less than 2 sec), No Swelling Pulses: Left Dorsalis Pedis: Normal, Right Dorsalis Pedis: Normal Neurological/Psych: Oriented x3, Normal Speech, Normal Cognition, Normal Motor, Normal Sensation Gait: Steady ED Course And Treatment O2 Sat by Pulse Oximetry: 99 (RA) Pulse Ox Interpretation: Normal - Other Rad XR R Hip X-Ray: Read By Radiologist Interpretation: Curvilinear radiopaque density no longer present. No de monstrated fracture or dislocation. Medical Decision Making Medical Decision Making: Plan: Lidoderm patch applied. X-ray taken of right hip/pelvis. Patient informed of x-ray result. Disposition Counseled Patient/Family Regarding: Studies Performed, Diagnosis, Need For Followup - Disposition Referrals: [facility] [Outside] Disposition: HOME/ ROUTINE Disposition Time: 13:44 Condition: GOOD Additional Instructions: Take patch off in 12 hours. May use over the counter icy hot patches per directions. Tylenol recommended or ibupfren taken with food. You have appointment at medical clinic on 07/05; see if you can make sooner. Instructions: Sciatica (DC) Forms: [employer] ([place]), General Discharge Instructions - Clinical Impression Clinical Impression: Sciatica - PA / UX MANAGER / Resident Statement MD/DO has reviewed & agrees with the documentation as recorded.
--- NOTE | 2018-06-19 13:11 | RAD ---
PROCEDURE: Right Hip Radiographs. HISTORY: hx metallic fb right hip s/p removal, +pain COMPARISON: Right hip radiographs dated 12/07/2017. FINDINGS: BONES: No acute fracture. JOINTS: Normal. SOFT TISSUES: Normal. OTHER FINDINGS: Curvilinear radiopaque density no longer present. IMPRESSION: Curvilinear radiopaque density no longer present. No demonstrated fracture or dislocation.
[2018-06-20] MEDS ORDERED: Lidocaine 5% Patch TD SCH (10:00)
== END 2018-06-19 13:50 | disposition home or self-care (01) ==
LOC: C.ER 10:58
DX: M54.31 Sciatica, right side (principal)

== ENCOUNTER 2018-11-13 14:38 | Outpatient (CLI) | payer OTHER | END 2018-11-13 14:39 | disposition home or self-care (01) | LOC: C.MAMMO 14:39 ==